=== PATIENT | female | born 2000 | race African-American/Black ===

== ENCOUNTER 2024-02-06 21:37 | Inpatient (IN) | payer MEDICAID, OTHER ==
[2024-02-06 22:25] VITALS: BMI 24.1
[2024-02-06] MEDS ORDERED: hydrALAZINE 20 MG/ML VIAL SLOW IVP PRN ×2 (22:41→23:22)
[2024-02-06] MEDS ORDERED: Methylergonovine 0.2 MG/ML VIAL IM PRN (23:22)
[2024-02-06] MEDS ORDERED: fentaNYL 50 mcg/mL 1 mL Vial SLOW IVP PRN (23:22)
[2024-02-06] MEDS ORDERED: Promethazine HCl 25 MG/ML VIAL IM PRN (23:22)
[2024-02-06] MEDS ORDERED: Tranexamic Acid 1,000 MG/10 ML VIAL IVP PRN (23:22)
[2024-02-06] MEDS ORDERED: Acetaminophen 500 MG TAB PO PRN (23:22)
[2024-02-06] MEDS ORDERED: Lidocaine 1% (PF) 30 ML VIAL SC PRN (23:22)
[2024-02-06] MEDS ORDERED: Docusate 100 MG CAP PO PRN (23:22)
[2024-02-06] MEDS ORDERED: Misoprostol 200 MCG TAB PR PRN (23:22)
[2024-02-06] MEDS ORDERED: Carboprost 250 MCG/ML AMP IM PRN (23:22)
[2024-02-06] MEDS ORDERED: Ondansetron PF 4 MG/2 ML Vial IVP PRN (23:22)
[2024-02-06] MEDS ORDERED: Diphenoxylate HCl/Atropine Tablet PO PRN (23:22)
[2024-02-06] MEDS ORDERED: Oxytocin 30 units/NS 500 ML 500 ML IV SCH ×2 (23:30)
[2024-02-06 23:46] LABS: Bilirubin Neg (Negative); Blood, Urine 150 (Negative); Clarity Cloudy (Clear); Glucose, Urine (Dipstick) Normal (Negative); Ketone, Urine Negative (Negative); Leukocyte 500 (Negative); Nitrite Negative (Negative); Protein, Urine (Dipstick) 100 mg/dl (Neg-Trace); Specific Gravity, Urine 1.015 (1.005-1.030)
[2024-02-06 23:54] LABS: Amphetamine Not Detected (NotDetected); Barbiturates Screen Not Detected (NotDetected); Benzodiazepine Screen Not Detected (NotDetected); Cocaine Metabolite Screen Not Detected (NotDetected); Methadone Not Detected (NotDetected); Methamphetamine Not Detected (NotDetected); Opiate Screen Not Detected (NotDetected); Oxycodone Screen Not Detected (NotDetected); Phencyclidine (PCP) Not Detected (NotDetected); THC/Cannabinoid Screen Not Detected (NotDetected); Tricyclic Screen Not Detected (NotDetected)
[2024-02-06 23:59] LABS: Hematocrit 28.1 % (34.9-44.5); Hemoglobin 9.5 g/dL (12.0-15.5); Mean Corpuscular HGB CONC 33.8 g/dL (32.0-36.0); Mean Corpuscular Hemoglobin 23.2 pg (27.0-33.0); Mean Corpuscular Volume 68.5 fL (81.6-98.3); Mean Platelet Volume 12.4 fL (7.4-10.4); Platelet Count 223 10x3/uL (150-450); RBC Distribution Width 12.2 % (11.5-14.5); White Blood Cell (WBC) Count 7.1 10x3/uL (3.5-10.5)
[2024-02-07] LABS: Squamous Epithelial 21-50 HPF (0-3); WBC/HPF 21-50 HPF (0-3)
[2024-02-07 00:03] LABS: Bacteria/HPF 2+ HPF (None Seen); Yeast-Hyphae 2+ HPF (None Seen)
[2024-02-07 00:15] LABS: HBsAg Index 0.19 S/CO (0-0.99); HIV (1/2) Antibody/Antigen Non-Reactive (NonReactive); HIV 1/2 INDEX 0.16 S/CO (<1.00); Hep B Surf Ag - L&D Non-Reactive S/CO (NonReactive); Syphilis Antibody Nonreactive (Nonreactive); Syphilis Antibody Index 0.04 S/CO (<1.00 Non-Reactive)
[2024-02-07] MEDS: Penicillin G Potassium 5 MILL.UNITS in Sodium Chloride 0.9% 100 ML IVPB SCH (00:15)
[2024-02-07] MEDS: fentaNYL/Ropivacaine Epidural 100 ML ONE (01:56)
[2024-02-07] MEDS ORDERED: Lactated Ringer's 500 ML IV PRN (02:04)
[2024-02-07] MEDS ORDERED: Promethazine HCl 25 MG/ML VIAL IM PRN (02:04)
[2024-02-07] MEDS ORDERED: ePHEDrine Sulfate 50 MG/10 ML VIAL SLOW IVP PRN (02:04)
[2024-02-07] MEDS ORDERED: diphenhydrAMINE 50 MG/ML VIAL IVP PRN (02:04)
[2024-02-07] MEDS ORDERED: Ondansetron PF 4 MG/2 ML Vial IVP PRN (02:04)
[2024-02-07] MEDS ORDERED: Moisturizing Cream (Eucerin) 113 GM JAR TOP PRN (02:04)
[2024-02-07] MEDS ORDERED: Naloxone HCl 0.4 mg/ml Vial IVP PRN ×2 (02:04)
[2024-02-07] MEDS ORDERED: fentaNYL 2 mcg/Ropivacaine 0.2% Epidural 100 ML CADD EPIDURAL SCH (02:15)
[2024-02-07] MEDS ORDERED: Communication Order-Pharmacy FS SCH (02:15)
[2024-02-07 07:40] LABS: Anion Gap 19 mmol/L (10-20); BUN (Urea Nitrogen) 7 mg/dL (7.0-18.7); Bilirubin, Total 0.5 mg/dL (0.2-1.2); Calc. Creatinine Clearance 118 mL/min (70-130); Calcium 8.5 mg/dL (7.6-10.4); Carbon Dioxide 17 mmol/L (22-29); Chloride 105 mmol/L (98-107); Estimated GFR 124; Glucose 66 mg/dL (70-105); Potassium 3.5 mmol/L (3.5-5.1); Protein, Total 5.6 g/dL (6.0-8.3); Sodium 137 mmol/L (136-145)
[2024-02-07 07:41] LABS: ALT (SGPT) 8 U/L (8-55); AST (SGOT) 18 U/L (5-34); Albumin 2.7 g/dL (3.5-5.0); Alkaline Phosphatase 268 U/L (40-110); Globulin 2.9 g/dL (2.4-3.5)
[2024-02-07] MEDS ORDERED: Bisacodyl 10 MG SUPP PR PRN (08:00)
[2024-02-07] MEDS ORDERED: diphenhydrAMINE 25 MG CAP PO PRN (08:00)
[2024-02-07] MEDS ORDERED: Lanolin Ointment 7 GM TUBE TOP PRN (08:00)
[2024-02-07] MEDS ORDERED: Boostrix 0.5 ML (Tdap) VIAL (>/=7 yrs of age) IM SCH (08:00)
[2024-02-07] MEDS ORDERED: Zolpidem Tartrate 5 MG TAB PO PRN (08:00)
[2024-02-07] MEDS ORDERED: Misoprostol 200 MCG TAB VAG SCH (08:00)
[2024-02-07] MEDS ORDERED: hydrALAZINE 20 MG/ML VIAL SLOW IVP PRN (08:01)
[2024-02-07] MEDS ORDERED: Oxytocin 30 units/NS 500 ML 500 ML IVPB PRN (08:05)
[2024-02-07] MEDS ORDERED: Docusate Calcium (SURFAK) 240 MG CAP PO SCH (09:00)
[2024-02-07] MEDS: Lactated Ringer's 1,000 ML IV SCH ×2 (10:08)
[2024-02-07] MEDS: Penicillin G 2.5 MILL.units 2.5 MILL.UNITS in Premix 1 BAG IVPB SCH (10:09)
[2024-02-07] MEDS: Docusate 100 MG CAP PO SCH (10:10)
[2024-02-07] MEDS: Ferrous Sulfate 325 MG TAB PO SCH (10:10)
[2024-02-07] MEDS: fentaNYL 50 mcg/mL 1 mL Vial ONE (10:10)
[2024-02-07] MEDS: Ibuprofen 800 MG TAB ONE (12:41)
[2024-02-07] MEDS: Ibuprofen 800 MG TAB PO SCH ×2 (15:25→15:30)
[2024-02-08] MEDS: Acetaminophen 325 MG TAB PO PRN (05:18)
[2024-02-08] MEDS: Ondansetron PF 4 MG/2 ML Vial IVP PRN (11:48)
[2024-02-08] MEDS ORDERED: Bupivacaine PF 0.5% 30 ML VIAL ONE (12:35)
[2024-02-08] MEDS ORDERED: Bupivacaine 0.25% HCL 30 ML VIAL ONE (12:35)
[2024-02-08] MEDS: HYDROcodone/Acetaminophen 5/325 mg Tablet PO PRN (13:32)
[2024-02-08] MEDS: Milk Of Magnesia 30 ML UDCUP PO PRN (13:34)
[2024-02-08 19:25] VITALS: BP 134/82; TEMP 98.7
== END 2024-02-08 21:54 | disposition home or self-care (01) | DRG 807 ==
LOC: CSHLD/OP 21:37 → CSHLD 23:22 → CSHPP 02-07 09:50
PROVIDERS: ADMIT Obstetrics & Gynecology; ATTEND Obstetrics & Gynecology
PROC: 10E0XZZ Delivery of Products of Conception, External Approach (ICD-10-PCS; principal; 2024-02-07)
DX: O42.02 Full-term premature rupture of membranes, onset of labor within 24 hours of rupture (principal); Z37.0 Single live birth; Z3A.37 37 weeks gestation of pregnancy; O62.2 Other uterine inertia; Z90.49 Acquired absence of other specified parts of digestive tract; O99.02 Anemia complicating childbirth; D57.1 Sickle-cell disease without crisis
CPT/HCPCS: 80053; 80306; 81001; 83021; 85027; 86762; 86780; 86850; 86900; 86901; 87340; 87389; J0665; J2405; J2540; J3010; J3490